=== PATIENT | female | born 1965 | race African-American/Black ===

== ENCOUNTER 2016-06-27 15:51 | Emergency (ER) | payer OTHER ==
[~2016-06-27] VITALS: Ht 170.2 cm; Wt 71.8 kg
[~2016-06-27 15:51] MED LIST: DILT-121 PO; cholesterol med
[2016-06-27 16:07] VITALS: TEMP 36.9; Ht 170.2 cm; Wt 71.8 kg
[2016-06-27] MEDS ORDERED: ACETAMINOPHEN 500 MG TAB PO STA (16:41)
[2016-06-27] MEDS ORDERED: POTA20TA13 PO (16:57)
[2016-06-27] MEDS ORDERED: DILT-115 PO (17:00)
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
[2016-06-27] MEDS ORDERED: IBUPROFEN 600 MG TAB PO STA (17:16)
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
[2016-06-27 18:25] VITALS: BP 147/98; PULSE 89; O2SAT 98
== END 2016-06-27 18:25 | disposition home or self-care (01) ==
LOC: C.EDB 15:53 → C.EDD 18:25
DX: S39.012A Strain of muscle, fascia and tendon of lower back, initial encounter (principal); S09.90XA Unspecified injury of head, initial encounter; F17.210 Nicotine dependence, cigarettes, uncomplicated; V53.5XXA Driver of pick-up truck or van injured in collision with car, pick-up truck or van in traffic accident, initial encounter; Y99.0 Civilian activity done for income or pay; Z79.899 Other long term (current) drug therapy